=== PATIENT | male | born 1960 | race African-American/Black ===

== ENCOUNTER → 2017-05-04 | Outpatient (CLI) | payer OTHER ==
--- NOTE | ~2017-05-04 | CT69 ---
[facility] A Service of [facility] [place] RADIOLOGY TEXT RESULTS PATIENT: PASCUAL LERMA LOCATION: [facility] : 62 UNIT #: [id number] AGE: [address]: Rick Hernandez MD SEX: M ORDER DR: [id number] [facility] [address] [place], [place] [address] [id number] O MR#: [id number] Acc #: [id number] NAME: PASCUAL LERMA : 1960 SEX: M STUDY DATE/TIME: 05/04/2017 11:22 UNIT: [facility] ROOM: STUDY DESCRIPTION: CT Head W Contrast Attending Physician: Rick Hernandez M.D., Ph.D. Referring Physician: Rick Hernandez M.D., Ph.D. Ordering Physician: Rick Hernandez M.D., Ph.D. Primary Care Physician: Primary Care Physician No MEDICAL IMAGING REPORT This report is preliminary unless electronic signature is present EXAM CT head INDICATION Malignant neoplasm of the upper lobe of the lung. Observation for metastatic disease. TECHNIQUE CT of the head utilizing 100 mL Isovue-[address] examination was performed with one or more of the following radiation dose reduction techniques: automatic exposure control, adjustment of mA and/or kV according to patient size, and iterative reconstruction. COMPARISON CT head 11/03/2016. FINDINGS No abnormal enhancing mass or lesion. There is generalized chronic small vessel changes in the periventricular and subcortical white matter. No extraaxial enhancement or extraaxial collection. No acute osseous abnormalities. IMPRESSION No evidence of metastatic disease. Dictated by... Wilberto Paz M.D. THIS IS AN ELECTRONICALLY VERIFIED REPORT Wilberto Paz M.D. at 05/07/2017 3:47 PM C/mihaelas [facility] A Service of [facility] RADIOLOGY TEXT RESULTS PATIENT: PASCUAL LERMA LOCATION: [facility] : 62 UNIT #: [id number] AGE: [address]: Rick Hernandez MD SEX: M ORDER DR: TD: 05/07/2017 12:19 JOB #: [id number] MEDICAL IMAGING REPORT Page 1 of 1 COPY
--- NOTE | ~2017-05-04 | CT55 ---
[facility] A Service of [facility] RADIOLOGY TEXT RESULTS PATIENT: PASCUAL LERMA LOCATION: [facility] : 62 UNIT #: [id number] AGE: [address]: Rick Hernandez MD SEX: M ORDER DR: [id number] [place] [id number] [facility]. [place], [place] [address] [id number] O MR#: [id number] Acc #: [id number] NAME: PASCUAL LERMA : 1960 SEX: M STUDY DATE/TIME: 05/04/2017 11:09 UNIT: [facility] ROOM: STUDY DESCRIPTION: CT Chest W Con Attending Physician: Rick Hernandez M.D., Ph.D. Referring Physician: Rick Hernandez M.D., Ph.D. Ordering Physician: Rick Hernandez M.D., Ph.D. MEDICAL IMAGING REPORT This report is preliminary unless electronic signature is present EXAM CT chest with contrast INDICATIONS Follow up lung cancer. TECHNIQUE CT of the chest performed without contrast. Coronal and sagittal reformatted images were obtained. This CT exam was performed with one or more of the following radiation dose reduction techniques: automatic exposure control, adjustment of mA and/or kV according to patient size, and iterative reconstruction. COMPARISON STUDIES 11/03/2016. FINDINGS Stable scarring, volume loss and bronchiectasis in the right upper lobe. No suspicious pulmonary nodule. No suspicious lymphadenopathy. No pleural effusion. Limited imaging of the upper abdomen demonstrates stable hepatic cysts. The adrenal glands are unremarkable. The bone windows are unremarkable. IMPRESSION Stable exam. No evidence for metastatic disease. Dictated by... Fabio Hanna M.D. THIS IS AN ELECTRONICALLY VERIFIED REPORT [facility] A Service [facility] RADIOLOGY TEXT RESULTS PATIENT: PASCUAL LERMA LOCATION: [facility] : 62 UNIT #: [id number] AGE: [address]: Rick Hernandez MD SEX: M ORDER DR: Fabio Hanna M.D. at 05/07/2017 4:59 PM ARS/pcl TD: 05/06/2017 14:41 JOB #: [id number] MEDICAL IMAGING REPORT Page 1 of 1 COPY
== END | disposition home or self-care (01) ==
LOC: CCAT 09:22
DX: C34.11 Malignant neoplasm of upper lobe, right bronchus or lung (principal)
CPT/HCPCS: 70460; 71260; Q9967